=== PATIENT | female | born 1965 | race American Indian/Alaskan Native ===

== ENCOUNTER 2017-09-06 00:34 | Emergency (ER) | payer OTHER ==
[2017-09-06 01:26] VITALS: O2SAT 99
--- NOTE | 2017-09-06 03:08 | ED PDOC ---
Lower Extremity Pain/Injury Time Seen by Provider: 09/06/17 01:57 Chief Complaint (Nursing): Lower Extremity Problem/Injury Chief Complaint (Provider): Lower Extremity Problem/Injury History Per: Patient History/Exam Limitations: no limitations Onset/Duration Of Symptoms: Days (x 2 months) Current Symptoms Are (Timing): Still Present Additional Complaint(s): 51 year old female presents to the ED with right foot pain for the last 2 months. She twisted her foot and initially treated it with ice and elevation which alleviated swelling. Pain persists at the dorsal aspect of right mid foot when she ambulates. Otherwise: (-) muscle aches, other joint pain, numbness, fever, or other injury. - Ankle/Foot Description Of Injury: Twisted Past Medical History Reviewed: Historical Data, Nursing Documentation, Vital Signs Vital Signs: Last Vital Signs Temp 98.3 F 09/06/17 01:23 Pulse 81 09/06/17 01:23 Resp 16 09/06/17 01:23 BP 127/84 09/06/17 01:23 Pulse Ox 99 09/06/17 01:23 - Medical History PMH: Gastritis, HTN - Surgical History Surgical History: No Surg Hx - Family History Family History: States: Unknown Family Hx - Immunization History Hx Tetanus Toxoid Vaccination: No Hx Influenza Vaccination: No Hx Pneumococcal Vaccination: No - Home Medications Home Medications: Ambulatory Orders Medication Instructions Recorded Pantoprazole Sodium [Protonix] 20 mg PO DAILY #15 ect 08/20/17 Polyethylene Glycol 3350 [Miralax] 17 gm PO DAILY #270 ml 08/20/17 - Allergies Allergies/Adverse Reactions: Allergies Allergy/AdvReac Type Severity Reaction Status Date / Time No Known Allergies Allergy Unverified 08/19/17 23:28 Review of Systems ROS Statement: Except As Marked, All Systems Reviewed And Found Negative Musculoskeletal: Positive for: Foot Pain ( right foot pain ) Physical Exam - Reviewed Nursing Documentation Reviewed: Yes Vital Signs Reviewed: Yes - Physical Exam Comments: GENERAL APPEARANCE: Patient is awake, alert, oriented x 3, in no acute distress. Patient is ambulating in the ER without discomfort with a normal gait. SKIN: Warm, dry; (-) cyanosis. LOWER EXTREMITY: (-) swelling, tenderness, (+) full range of motion. Achilles tendon intact and nontender. CARDIOVASCULAR: (+) distal pulse. NEUROLOGIC: (+) distal sensation. - ECG O2 Sat by Pulse Oximetry: 99 Medical Decision Making Medical Decision Makin --Right foot x-ray --Right ankle x-ray --Motrin PO XR R foot : +heel spur, no fracture, no dislocation, as read by PA. XR R ankle : +soft tissue swelling to the posterior ankle, +heel spur, no fracture, no dislocation, as read by GARRETT. Patient advised that today's XR reading is preliminary and final radiology reading will be performed in 24 hours, the patient will be contacted for any discrepancies. Case d/w podiatry resident Dr. De Los Santos, who will evaluate the patient. X-ray results discussed with the patient in great detail. Patient advised that podiatry resident was consulted and will come and evaluate the patient. Patient states that she does not want to wait for a podiatry resident and that she intends to follow up with the podiatry clinic this week for further evaluation. Patient asked to reconsider as the podiatry resident will be in the ER within minutes to see the patient, however she still is refusing their evaluation at this time and wants to go home now. Patient instructed to follow-up with podiatry referral provided in 1-2 days without fail. Advised to take medication as prescribed. Rest, ice and elevate the joint. Return to the emergency room at any time for any new or worsening symptoms. Patient states she fully agrees with and understands discharge instructions. States that she agrees with the plan and disposition. Verbalized and repeated discharge instructions and plan. I have given the patient opportunity to ask any additional questions. Scribe Attestation: Documented by Kaitlynn Boyer, acting as a scribe for Vilma Fisher PA-C Provider Scribe Attestation: All medical record entries made by the Scribe were at my direction and personally dictated by me. I have reviewed the chart and agree that the record accurately reflects my personal performance of the history, physical exam, medical decision making, and the department course for this patient. I have also personally directed, reviewed, and agree with the discharge instructions and disposition. Disposition - Clinical Impression Clinical Impression: Ankle sprain, Foot sprain - Patient ED Disposition Is Patient to be Admitted: No Counseled Patient/Family Regarding: Studies Performed, Diagnosis, Need For Followup, Rx Given - Disposition Referrals: Podiatry Clinic [Outside] Disposition: Routine/Home Disposition Time: 03:45 Condition: STABLE Additional Instructions: Calvin por dejarnos atenderlo hoy. Usted recibi tratamiento por esguince de tobillo / pie. La atencin mdica de emergencia que recibi hoy se dirigi a los sntomas agudos de presentacin. Descanse, hiele y eleve campbell pie. [place] Advil por el dolor. Mihaela sntomas pueden tardar varios dia en resolverse. Regrese al Departamento de Emergencia en cualquier momento si los sntomas empeoran, no mejoran o si surge algn otro problema. Llame a steven de los mdicos / clnicas a los que mccallum recomendado que se detallan en el formulario de Informacin de visita del paciente que se incluye en campbell paquete de emily. Lleve todos los documentos que recibi al momento del emily junto con los medicamentos a campbell visita de seguimiento. Nuestro tratamiento no puede reemplazar la atencin mdica en curso por parte de un proveedor de atenci n primaria (PCP) fuera del departamento de emergencias. Calvin por permitir que el equipo de [facility] sea parte de campbell cuidado hoy. Si se hizo danielle radiografa: un radilogo revisar la lectura del [place] si se necesita algn cambio en el tratamiento, nos comunicaremos con usted. Instructions: Ankle Sprain (DC), Foot Sprain (DC) Forms: [employer] (Armenian) Print Language: FAROESE - PA / HAND SCRAPER / Resident Statement MD/DO has reviewed & agrees with the documentation as recorded.
[2017-09-06 04:12] VITALS: BP 136/86; PULSE 84; RESP 18; TEMP 98.5
--- NOTE | 2017-09-06 09:32 | RAD ---
Date of service: 09/06/2017 PROCEDURE: Right Ankle Radiographs. HISTORY: pain COMPARISON: None FINDINGS: BONES: No acute fracture. JOINTS: Ankle mortise maintained. Talar dome intact SOFT TISSUES: Normal. OTHER FINDINGS: Achilles enthesophyte. Small inferior plantar calcaneal spur. IMPRESSION: No demonstrated fracture or dislocation.
--- NOTE | 2017-09-06 09:32 | RAD ---
Date of service: 09/06/2017 PROCEDURE: Right Foot Radiographs. HISTORY: pain COMPARISON: None. FINDINGS: BONES: No acute fracture. JOINTS: Unremarkable. SOFT TISSUES: Normal. OTHER FINDINGS: Achilles enthesophyte. Small inferior plantar calcaneal spur. IMPRESSION: No demonstrated fracture or dislocation.
== END 2017-09-06 04:12 | disposition home or self-care (01) ==
LOC: H.ER 00:34
DX: S93.401A Sprain of unspecified ligament of right ankle, initial encounter (principal); S93.601A Unspecified sprain of right foot, initial encounter; X50.9XXA Other and unspecified overexertion or strenuous movements or postures, initial encounter; Y92.89 Other specified places as the place of occurrence of the external cause; I10 Essential (primary) hypertension